=== PATIENT | male | born 1970 | race Caucasian/White ===

== ENCOUNTER 2016-12-12 11:45 | Emergency (ER) | payer SELFPAY ==
[~2016-12-12 11:45] MED LIST: HYDROmorphONE/DILAUDID 1 MG/ML SYR IVP ONE
[2016-12-12 11:50] VITALS: RESP 18
[2016-12-12] MEDS ORDERED: NS 1,000 ML IV ONE (12:14)
[2016-12-12] MEDS ORDERED: ONDANSETRON 4 MG/2 ML VIAL IVP ONE (12:14)
[2016-12-12] MEDS ORDERED: HYDROmorphONE/DILAUDID 1 MG/ML SYR IVP ONE (12:15)
[2016-12-12 12:16] LABS: COLOR PALE YELLOW; LEUKOCYTE ESTERASE,URINE NEGATIVE (NEGATIVE); NITRITE,URINE NEGATIVE (NEGATIVE)
[2016-12-12] MEDS ORDERED: TAMSULOSIN HCL 0.4 MG CAP PO ONE (12:16)
--- NOTE | 2016-12-12 12:19 | EDPHY ---
H & P Stated Complaint: r flank pain/hx kidney stones Time Seen by Provider: 12/12/16 11:51 HPI/ROS: CHIEF COMPLAINT: right flank pain HISTORY OF PRESENT ILLNESS: 46-year-old male presents emergency department complaining of sudden onset right flank pain that started at 3:00 a.m. and woke him from sleeping. Patient has a history of kidney stones and states this feels like a kidney stone. He states this morning he has an aching in his right testicle. He denies nausea, vomiting or diarrhea, no fevers. No difficulty urinating, no hematuria. Patient recently moved here from [place] , has passed multiple kidney stones, had lithotripsy several years ago. REVIEW OF SYSTEMS: A comprehensive 10 point review of systems is otherwise negative aside from elements mentioned in the history of present illness. Source: Patient Exam Limitations: No limitations - Personal History Current Tetanus/Diphtheria Vaccine: Yes - Medical/Surgical History Hx Asthma: No Hx Chronic Respiratory Disease: No Hx Diabetes: No Hx Cardiac Disease: No Hx Renal Disease: No Hx Cirrhosis: No Hx Alcoholism: No Hx HIV/AIDS: No Hx Splenectomy or Spleen Trauma: No Other PMH: kidney stones/ITP - Social History Smoking Status: Current every day smoker - Physical Exam Exam: Physical Exam Gen: Alert and Oriented, NAD HEENT: PERRL, moist mucous membranes NECK: no meningismus CV: regular rate and regular rhythm PULM: CTAB, no wheezes ABDOMEN: soft, mild right lower quadrant tenderness to palpation, BS present : No scrotal swelling, erythema or tenderness BACK: Right CVA tenderness NEURO: Neurologically grossly intact EXTREMITIES: normal appearing SKIN: no rash or break in skin on exposed skin PSYCH: answers questions appropriately. Constitutional: Initial Vital Signs Temperature (C) 36.8 C 12/12/16 11:48 Heart Rate 92 12/12/16 11:48 Respiratory Rate 18 12/12/16 11:48 Blood Pressure 122/72 H 12/12/16 11:48 O2 Sat (%) 100 12/12/16 11:48 O2 Delivery Mode Room Air Allergies/Adverse Reactions: prochlorperazine [From Compazine] Allergy (Verified 12/12/16 11:47) prochlorperazine edisylate [From Compazine] Allergy (Verified 12/12/16 11:47) prochlorperazine maleate [From Compazine] Allergy (Verified 12/12/16 11:47) promethazine HCl [From Phenergan] Allergy (Verified 12/12/16 11:47) cyllins Allergy (Uncoded 12/12/16 11:47) Home Medications: Medication Instructions Recorded Ondansetron Odt [Zofran Odt] 4 mg PO Q6-8PRN PRN #8 tab 12/12/16 Tamsulosin HCl [Flomax 0.4 MG (*)] 0.4 mg PO DAILY #7 cap 12/12/16 oxyCODONE/APAP 5/325 [Percocet 1 - 2 tab PO Q6H PRN #12 tab 12/12/16 5/325] Medical Decision Making ED Course/Re-evaluation: 46-year-old male presents with right flank pain that woke him from his sleep at 3:00 a.m.. IV established, chemistry panel obtained. Chemistry panel shows a normal creatinine and BUN, urinalysis shows 10-15 RBC's , no WBCs. Patient is afebrile, he has no evidence of infected stone. Patient is given 1 mg of Dilaudid with 4 mg of Zofran for pain control. He is also given 0.4 mg of tamsulosin. Patient required 1 other dose of IV Dilaudid. Patient is urinating without difficulty, his pain is controlled. He will be discharged home with a prescription for Percocet and tamsulosin. He is referred to a urologist as he is new to [facility]. He is given return precautions for pain that is not controlled, fevers, vomiting, any other symptoms or concerns. Patient is comfortable with this plan. Differential Diagnosis: The differential diagnosis for the patient's flank pain included but was not limited to musculoskeletal causes, kidney stone, pyelonephritis, shingles, diverticulitis, appendicitis, and aortic aneurysm. - Data Points Laboratory Results: Laboratory Results 12/12/16 12:00 12/12/16 12/12/16 12:00 11:50 Sodium 143 mEq/L (134-144) Potassium 4.3 mEq/L (3.5-5.2) Chloride 105 mEq/L (97-110) Carbon Dioxide 27 mEq/l (22-31) Anion Gap 11 mEq/L (8-16) BUN 14 mg/dL (7-23) Creatinine 0.8 mg/dL (0.7-1.3) Estimated GFR > 60 Glucose 71 mg/dL (70-100) Calcium 9.9 mg/dL (8.5-10.4) Urine Color PALE YELLOW Urine Appearance CLEAR Urine pH 7.0 (5.0-7.5) Ur Specific [place] 1.005 (1.002-1.030) Urine Protein NEGATIVE (NEGATIVE) Urine Ketones NEGATIVE (NEGATIVE) Urine Blood 3+ H (NEGATIVE) Urine Nitrate NEGATIVE (NEGATIVE) Urine Bilirubin NEGATIVE (NEGATIVE) Urine Urobilinogen NEGATIVE EU (0.2-1.0) Ur Leukocyte Esterase NEGATIVE (NEGATIVE) Urine RBC 10-15 H /hpf (0-3) Urine WBC 1-3 /hpf (0-3) Ur Epithelial Cells NONE SEEN /lpf (NONE-1+) Urine Mucus TRACE /lpf (NONE-1+) Ur Culture Indicated? NOT INDICATED (NI) Urine Glucose NEGATIVE (NEGATIVE) Medications Given: Discontinued Medications Hydromorphone HCl (Dilaudid) 1 mg IVP EDNOW ONE Stop: 12/12/16 12:16 Last Admin: 12/12/16 12:25 Dose: 1 mg Hydromorphone HCl (Dilaudid) 1 mg IVP EDNOW ONE Stop: 12/12/16 08:01 Last Admin: 12/12/16 13:14 Dose: 1 mg Sodium Chloride (Ns) 1,000 mls @ 0 mls/hr IV ONCE ONE PRN Reason: Wide Open Stop: 12/12/16 12:15 Last Admin: 12/12/16 12:28 Dose: 1,000 mls Ondansetron HCl (Zofran) 4 mg IVP EDNOW ONE Stop: 12/12/16 12:15 Last Admin: 12/12/16 12:25 Dose: 4 mg Tamsulosin HCl (Flomax) 0.4 mg PO EDNOW ONE Stop: 12/12/16 12:17 Last Admin: 12/12/16 12:25 Dose: 0.4 mg Departure - Departure Disposition: Home, Routine, Self-Care Clinical Impression: Renal colic on right side Condition: Good Instructions: Renal Colic (ED), How to Strain Your Urine (ED) Additional Instructions: Kidney stone: Take Percocet as needed for severe pain. Use Zofran as needed for nausea. Take Flomax as directed. Followup with urology as directed for symptoms not improving. Strain urine. Return to the emergency department if you have worsening pain, fevers, persistent vomiting, or other concerns. Referrals: Rajan Cortez MD [Medical Doctor] - As per Instructions (Urologist on-call) Prescriptions: Tamsulosin HCl [Flomax 0.4 MG (*)] 0.4 mg PO DAILY #7 cap oxyCODONE/APAP 5/325 [Percocet 5/325] 1 - 2 tab PO Q6H PRN #12 tab PRN Reason: Pain, Severe Ondansetron Odt [Zofran Odt] 4 mg PO Q6-8PRN PRN #8 tab PRN Reason: Nausea/Vomiting, Can'T Take Po
[2016-12-12 12:27] LABS: MUCUS TRACE /lpf (NONE-1+)
[2016-12-12 12:32] LABS: ANION GAP 11 mEq/L (8-16); CALCIUM 9.9 mg/dL (8.5-10.4); CARBON DIOXIDE 27 mEq/l (22-31); CHLORIDE 105 mEq/L (97-110); CREATININE 0.8 mg/dL (0.7-1.3); GLOMERULAR FILTRATION RATE > 60; GLUCOSE 71 mg/dL (70-100); POTASSIUM 4.3 mEq/L (3.5-5.2); SODIUM 143 mEq/L (134-144)
[2016-12-12] MEDS ORDERED: HYDROmorphONE/DILAUDID 1 MG/ML SYR ONE (13:11)
[2016-12-12 14:18] VITALS: BP 103/69; PULSE 85; TEMP 98.4; O2SAT 95
== END 2016-12-12 14:16 | disposition home or self-care (01) ==
DX: N23 Unspecified renal colic (principal); F17.200 Nicotine dependence, unspecified, uncomplicated
CPT/HCPCS: 96374; J1170; J2405

== ENCOUNTER 2016-12-17 11:27 | Emergency (ER) | payer SELFPAY ==
--- NOTE | 2016-12-17 11:32 | EDPHY ---
H & P Time Seen by Provider: 12/17/16 11:32 - Medical/Surgical History Hx Asthma: No Hx Chronic Respiratory Disease: No Hx Diabetes: No Hx Cardiac Disease: No Hx Renal Disease: No Hx Cirrhosis: No Hx Alcoholism: No Hx HIV/AIDS: No Hx Splenectomy or Spleen Trauma: No Other PMH: kidney stones/ITP - Social History Smoking Status: Current every day smoker Constitutional: Initial Vital Signs Temperature (C) 36.4 C 12/17/16 11:39 Heart Rate 76 12/17/16 11:39 Respiratory Rate 16 12/17/16 11:39 Blood Pressure 121/86 H 12/17/16 11:39 O2 Sat (%) 98 12/17/16 11:39 O2 Delivery Mode Room Air Allergies/Adverse Reactions: prochlorperazine [From Compazine] Allergy (Verified 12/17/16 11:39) prochlorperazine edisylate [From Compazine] Allergy (Verified 12/17/16 11:39) prochlorperazine maleate [From Compazine] Allergy (Verified 12/17/16 11:39) promethazine HCl [From Phenergan] Allergy (Verified 12/17/16 11:39) cyllins Allergy (Uncoded 12/12/16 11:47) Home Medications: Medication Instructions Recorded Ondansetron Odt [Zofran Odt] 4 mg PO Q6-8PRN PRN #8 tab 12/12/16 Tamsulosin HCl [Flomax 0.4 MG (*)] 0.4 mg PO DAILY #7 cap 12/12/16 oxyCODONE/APAP 5/325 [Percocet 1 - 2 tab PO Q6H PRN #12 tab 12/12/16 5/325] Medical Decision Making ED Course/Re-evaluation: CHIEF COMPLAINT: Flank pain. HISTORY OF PRESENT ILLNESS: 46-year-old male with a history of kidney stones presents with right flank pain. He was seen in the emergency department last weekend for similar complaints. He did not have a CT scan but was sent home on pain medications with urology follow up. He called but did not get an appointment until next week so he presents for pain control. The pain now radiates to his testicles. The pain is severe and stabbing in nature. This presentation is identical to his other presentations. REVIEW OF SYSTEMS: A 10 point review of systems was performed and is negative with the exception of the elements mentioned in the history of present illness. PHYSICAL EXAM: HR, BP, O2 Sat, RR. Temp noted General Appearance: Alert, well hydrated, appropriate, and non-toxic appearing. Head: Atraumatic without scalp tenderness or obvious injury Eyes: Pupils equal, round, reactive to light and accommodation, EOMI, no trauma , no injection. Ears: Clear bilaterally, no perforation, normal landmarks Nose: Atraumatic, no rhinorrhea, clear. Throat: There is no erythema or exudates, no lesions, normal tonsils, mucus membranes moist. Neck: Supple, 2+ carotid upstroke, nontender, no lymphadenopathy. Respiratory: No retractions, no distress, no wheezes, and no accessory muscle use. Lungs are clear to auscultation bilaterally. Cardiovascular: Regular rate and rhythm, no murmurs, rubs, or gallops. Bilateral carotid, radial, dorsalis pedis, and posterior tibial pulses intact. Good capillary refill all extremities. Gastrointestinal: Abdomen is soft, nontender, non-distended, no masses, no rebound, no guarding, no peritoneal signs. Musculoskeletal: Normal active ROM of all extremities, atraumatic. Neurological: Alert, appropriate, and interactive. The patient has normal DTRs and non-focal cranial nerves, motor, sensory, and cerebellar exam. Skin: No rashes, good turgor, no nodules on palpation. Past medical history:kidney stones/ITP Family history:Non-contributory. Social history:Here with . DIFFERENTIAL DIAGNOSIS: The differential diagnosis for the patient's flank pain included but was not limited to musculoskeletal causes, kidney stone, pyelonephritis, shingles, diverticulitis, appendicitis, and aortic aneurysm. MEDICAL DECISION MAKING: This 46-year-old male has a history of kidney stones and presents with right flank pain. His presentation is identical to his other kidney stones. He has had a number of CT scans in the past 3 years and does not want imaging today. I don't believe he needs imaging as he is sure he has a kidney stone and I agree. He has an appointment with Dr. Maldonado on Tuesday. His UA today shows no sign of infection. He will be prescribed oxycodone IR to carry him through to his appointment. He is comfortable with the plan. - Data Points Laboratory Results: 12/17/16 12/17/16 12/17/16 11:48 11:37 11:35 WBC Pending RBC Pending Hgb Pending Hct Pending MCV Pending MCH Pending MCHC Pending RDW Pending Plt Count Pending MPV Pending Neut % (Auto) Pending Lymph % (Auto) Pending [place] % (Auto) Pending Eos % (Auto) Pending Baso % (Auto) Pending Nucleat RBC Rel Count Pending Absolute Neuts (auto) Pending Absolute Lymphs (auto) Pending Absolute Monos (auto) Pending Absolute Eos (auto) Pending Absolute Basos (auto) Pending Absolute Nucleated RBC Pending Immature Gran % Pending Immature Gran # Pending Sodium Pending Potassium Pending Chloride Pending Carbon Dioxide Pending Anion Gap Pending BUN Pending Creatinine Pending Estimated GFR Pending Glucose Pending Calcium Pending Urine Color PALE YELLOW Urine Appearance CLEAR Urine pH 6.0 (5.0-7.5) Ur Specific [place] 1.004 (1.002-1.030) Urine Protein NEGATIVE (NEGATIVE) Urine Ketones NEGATIVE (NEGATIVE) Urine Blood 3+ H (NEGATIVE) Urine Nitrate NEGATIVE (NEGATIVE) Urine Bilirubin NEGATIVE (NEGATIVE) Urine Urobilinogen NEGATIVE EU (0.2-1.0) Ur Leukocyte Esterase NEGATIVE (NEGATIVE) Urine RBC 50-182 H /hpf (0-3) Urine WBC NONE SEEN /hpf (0-3) Ur Epithelial Cells NONE SEEN /lpf (NONE-1+) Ur Culture Indicated? NOT INDICATED (NI) Urine Glucose NEGATIVE (NEGATIVE) Departure - Departure Disposition: Home, Routine, Self-Care Clinical Impression: Kidney stone Condition: Good Instructions: Kidney Stones (ED) Additional Instructions: Take Oxycodone as prescribed for pain. Follow up with Dr. Maldonado as scheduled. Return to the emergency department for any serious worsening of condition. Referrals: NONE *PRIMARY CARE P,. [Primary Care Provider] - As per Instructions Himanshu Maldonado MD [Medical Doctor] - As per Instructions Report Scribed for: Artemio Wang Report Scribed by: Kory Fang Date of Report: 12/17/16 Time of Report: 11:53
[2016-12-17] MEDS ORDERED: NS 1,000 ML IV ONE (11:37)
[2016-12-17] MEDS ORDERED: KETOROLAC 30 MG/1 ML SDV IVP ONE (11:37)
[2016-12-17] MEDS ORDERED: HYDROmorphONE/DILAUDID 1 MG/ML SYR ONE (11:47)
[2016-12-17 11:48] LABS: COLOR PALE YELLOW; LEUKOCYTE ESTERASE,URINE NEGATIVE (NEGATIVE); NITRITE,URINE NEGATIVE (NEGATIVE)
[2016-12-17 11:51] LABS: RBC,URINE 50-182 /hpf (0-3)
[2016-12-17 11:52] LABS: WBC,URINE NONE SEEN /hpf (0-3)
[2016-12-17] MEDS ORDERED: HYDROmorphONE/DILAUDID 1 MG/ML SYR IVP ONE ×2 (11:55→12:29)
[2016-12-17 11:57] LABS: % IMMATURE GRANULYOCYTES 0.2 % (0.0-1.1); ABSOLUTE IMMATURE GRANULOCYTES 0.01 10^3/uL (0.00-0.10); ADD DIFF? NO; ADD MORPH? NO; ADD SCAN? NO; ATYPICAL LYMPHOCYTE FLAG 10 (0-99); FRAGMENT RBC FLAG 0 (0-99); HEMATOCRIT 44.6 % (40.0-51.0); HEMOGLOBIN 15.5 g/dL (13.7-17.5); LEFT SHIFT FLG 0 (0-99); LIPEMIA HEMOLYSIS FLAG 90 (0-99); MEAN CELL HEMOGLOBIN 30.3 pg (27.9-34.1); MEAN CELL HEMOGLOBIN CONCENTR. 34.8 g/dL (32.4-36.7); MEAN CELL VOLUME 87.3 fL (81.5-99.8); MEAN PLATELET VOLUME 9.2 fL (8.7-11.7); PLATELET CLUMPS FLAG 0 (0-99); PLATELET COUNT 295 10^3/uL (150-400); RED BLOOD CELL COUNT 5.11 10^6/uL (4.40-6.38); RED CELL DISTRIBUTION WIDTH 12.3 % (11.5-15.2)
[2016-12-17 12:29] LABS: ANION GAP 11 mEq/L (8-16); CALCIUM 9.8 mg/dL (8.5-10.4); CARBON DIOXIDE 24 mEq/l (22-31); CHLORIDE 109 mEq/L (97-110); CREATININE 0.8 mg/dL (0.7-1.3); GLOMERULAR FILTRATION RATE > 60; GLUCOSE 82 mg/dL (70-100); POTASSIUM 4.3 mEq/L (3.5-5.2); SODIUM 144 mEq/L (134-144)
[2016-12-17 12:32] VITALS: PULSE 71; RESP 18
[2016-12-17 12:44] VITALS: BP 122/81; TEMP 98.1; O2SAT 96
== END 2016-12-17 12:43 | disposition home or self-care (01) ==
DX: N20.0 Calculus of kidney (principal); F17.200 Nicotine dependence, unspecified, uncomplicated
CPT/HCPCS: 96374; J1170; J1885

== ENCOUNTER 2017-02-02 18:10 | Emergency (ER) | payer SELFPAY ==
[2017-02-02 18:45] LABS: COLOR PALE YELLOW; LEUKOCYTE ESTERASE,URINE NEGATIVE (NEGATIVE); NITRITE,URINE NEGATIVE (NEGATIVE)
[2017-02-02 18:46] LABS: BACTERIA TRACE /hpf (NONE SEEN); MUCUS TRACE /lpf (NONE-1+); RBC,URINE 50-182 /hpf (0-3)
[2017-02-02] MEDS ORDERED: HYDROmorphONE/DILAUDID 1 MG/ML SYR IVP ONE ×3 (18:57→20:14)
[2017-02-02] MEDS ORDERED: NS 1,000 ML IV ONE (19:15)
--- NOTE | 2017-02-02 20:05 | EDPHY ---
H & P Time Seen by Provider: 02/02/17 20:01 HPI/ROS: CHIEF COMPLAINT: Left flank pain HISTORY OF PRESENT ILLNESS: 46-year-old male with a history of multiple prior kidney stones presents left flank pain. He was diagnosed with a left ureteral stone, 5 mm in diameter, 10 days ago in [facility]. He was discharged home on Flomax and Percocet. The pain resolved for several days, but has now returned. The pain is moderate and is located in the left flank and radiates to his groin. He has an appointment to see Dr. Alexander next Tuesday. REVIEW OF SYSTEMS: Constitutional: No fever, no chills Eyes: No visual changes ENT: No sore throat Respiratory: No cough, no shortness of breath Cardiac: No chest pain Gastrointestinal: No nausea, no vomiting Genitourinary: No hematuria, no dysuria Musculoskeletal: No leg pain or swelling Skin: No rash Neurological: No headache, no numbness, no weakness Psychiatric: No depression Past Medical/Surgical History: Kidney stones ITP Social History: No PCP No recent alcohol Smoking Status: Current every day smoker Physical Exam: General Appearance: Alert, appears comfortable Eyes: Pupils equal and round, no conjunctival pallor or injection ENT, Mouth: Mucous membranes moist Neck: Normal inspection Respiratory: Lungs are clear to auscultation Cardiovascular: Regular rate and rhythm Gastrointestinal: Abdomen is soft and nontender Neurological: A&O, nonfocal, normal gait Skin: Warm and dry, no rash Extremities: Nontender, no pedal edema Psychiatric: Mood and affect normal Constitutional: Initial Vital Signs Temperature (C) 36.7 C 02/02/17 18:30 Heart Rate 102 H 02/02/17 18:30 Respiratory Rate 20 02/02/17 18:30 Blood Pressure 112/73 02/02/17 18:30 O2 Sat (%) 98 02/02/17 18:30 O2 Delivery Mode Room Air Allergies/Adverse Reactions: prochlorperazine [From Compazine] Allergy (Verified 02/02/17 18:29) prochlorperazine edisylate [From Compazine] Allergy (Verified 02/02/17 18:29) prochlorperazine maleate [From Compazine] Allergy (Verified 02/02/17 18:29) promethazine HCl [From Phenergan] Allergy (Verified 02/02/17 18:29) cyllins Allergy (Uncoded 12/12/16 11:47) Home Medications: Medication Instructions Recorded Tamsulosin HCl [Flomax 0.4 MG (RX)] 0.4 mg PO DAILY #4 cap 02/02/17 oxyCODONE/APAP 5/325 [Percocet 1 tab PO Q4 PRN #15 tab 02/02/17 5/325 (*)] Medical Decision Making - Diagnostics Imaging: KUB independently reviewed by me reveals no definite ureteral calculus. ED Course/Re-evaluation: Dilaudid and Zofran IV given on patient arrival for pain control. He requests that we do not do a repeat CT scan as he has had [address] scans of the abdomen and pelvis. He understands that he needs to obtain the prior CT scan performed 10 days ago before he sees the urologist. Feels better after IV pain medication. I will send him home with a short prescription of Percocet as well as Flomax. Differential Diagnosis: Differential diagnosis includes though it is not limited to appendicitis, cholecystitis, diverticulitis, pyelonephritis, bowel perforation, small bowel obstruction. - Data Points Medications Given: Discontinued Medications Hydromorphone HCl (Dilaudid) 1 mg IVP EDNOW ONE Stop: 02/02/17 18:58 Last Admin: 02/02/17 19:00 Dose: 1 mg Hydromorphone HCl (Dilaudid) 2,010 mg IVP EDNOW ONE Stop: 02/02/17 20:15 Last Admin: 02/02/17 20:40 Dose: Not Given Hydromorphone HCl (Dilaudid) 1 mg IVP EDNOW ONE Stop: 02/02/17 20:11 Last Admin: 02/02/17 20:10 Dose: 1 mg Sodium Chloride (Ns) 1,000 mls @ 0 mls/hr IV ONCE ONE PRN Reason: Wide Open Stop: 02/02/17 19:16 Last Admin: 02/02/17 19:15 Dose: 1,000 mls Departure - Departure Disposition: Home, Routine, Self-Care Clinical Impression: Renal colic on left side Condition: Good Instructions: Oxycodone/Acetaminophen (By mouth), Renal Colic (ED) Additional Instructions: Take Percocet 1 tablet every 6 hours as needed for pain. Referrals: Rajan Cortez MD [Medical Doctor] - As per Instructions Prescriptions: oxyCODONE/APAP 5/325 [Percocet 5/325 (*)] 1 tab PO Q4 PRN #15 tab PRN Reason: pain Tamsulosin HCl [Flomax 0.4 MG (RX)] 0.4 mg PO DAILY #4 cap
[2017-02-02] MEDS ORDERED: HYDROmorphONE/DILAUDID 1 MG/ML SYR ONE (20:10)
[2017-02-02 20:44] VITALS: O2SAT 99
[2017-02-02] MEDS ORDERED: OXYCODONE/APAP 5/325MG PREPACK#4 BTL TAKEHOME ONE ×2 (21:09→21:10)
[2017-02-02 21:25] VITALS: BP 112/76; PULSE 87; RESP 14; TEMP 99
== END 2017-02-02 21:25 | disposition home or self-care (01) ==
DX: N23 Unspecified renal colic (principal); F17.200 Nicotine dependence, unspecified, uncomplicated
CPT/HCPCS: 96374; J1170

== ENCOUNTER 2017-03-27 10:32 | Emergency (ER) | payer SELFPAY ==
[2017-03-27] MEDS ORDERED: ONDANSETRON 4 MG/2 ML VIAL ONE (10:54)
[2017-03-27] MEDS ORDERED: HYDROmorphONE/DILAUDID 1 MG/ML SYR IVP ONE ×2 (10:55→12:12)
[2017-03-27] MEDS ORDERED: HYDROmorphONE/DILAUDID 1 MG/ML SYR ONE (10:55)
--- NOTE | 2017-03-27 10:59 | EDPHY ---
H & P Stated Complaint: kidney stone Time Seen by Provider: 03/27/17 10:57 HPI/ROS: CHIEF COMPLAINT: Left-sided abdominal pain. HISTORY OF PRESENT ILLNESS: The patient is a 46-year-old male who states he has a history of kidney stones and who was diagnosed with a left uretal kidney in the mid ureter last week who presenting with worsening abdominal pain that began this morning. He has had intermittent abdominal pain since being diagnosed but this morning the pain became much worse and constant. It radiates to his testicles. He admits worsening hematuria. He is unable to get comfortable with the pain. No fever, chills, chest pain, shortness of breath, palpitations, vomiting, diarrhea, headache, lightheadedness. Patient relates a history that he was seen in [place] and there was diagnosed with a ureteral stone. Describes it is 5.9 mm. Patient reports he has a history of ITP and was given a Medrol Dosepak in [place] in preparation for potential stenting in order to increase his platelets. REVIEW OF SYSTEMS: Aside from elements discussed in the HPI, a comprehensive 10-point review of systems was reviewed and is negative. PAST MEDICAL HISTORY: Kidney stone, ITP. SOCIAL HISTORY: . VITAL SIGNS: Reviewed by me GENERAL: Well-developed, well-nourished, appears in pain. HEENT: Atraumatic. Eyes: No icterus, no injection. Mouth: moist mucous membranes. No erythema or lesions. Neck: supple with no adenopathy. LUNGS: Clear to auscultation bilaterally, no wheezes, rhonchi or rales. CARDIAC: Regular rate and rhythm, no rubs, murmurs or gallops. ABDOMEN: Soft, nondistended, bowel sounds normal. LLQ tenderness. BACK: No CVA tenderness. EXTREMITIES: No trauma. No edema. Range of motion is normal throughout. NEURO: Alert and oriented, grossly nonfocal. SKIN: Warm and dry, no rash. PSYCHIATRIC: Normal mentation, no agitation. Portions of this note were transcribed by a medical payment poster. I personally performed a history, physical exam, medical decision making, and confirmed accuracy of information the transcribed note. Source: Patient Exam Limitations: No limitations - Medical/Surgical History Hx Asthma: No Hx Chronic Respiratory Disease: No Hx Diabetes: No Hx Cardiac Disease: No Hx Renal Disease: No Hx Cirrhosis: No Hx Alcoholism: No Hx HIV/AIDS: No Hx Splenectomy or Spleen Trauma: No Other PMH: kidney stones/ITP - Social History Smoking Status: Current every day smoker Constitutional: Initial Vital Signs Temperature (C) 37.2 C 03/27/17 10:35 Heart Rate 99 03/27/17 10:35 Respiratory Rate 18 03/27/17 10:35 Blood Pressure 120/78 03/27/17 10:35 O2 Sat (%) 99 03/27/17 10:35 O2 Delivery Mode Room Air Allergies/Adverse Reactions: prochlorperazine [From Compazine] Allergy (Verified 02/02/17 18:29) prochlorperazine edisylate [From Compazine] Allergy (Verified 02/02/17 18:29) prochlorperazine maleate [From Compazine] Allergy (Verified 02/02/17 18:29) promethazine HCl [From Phenergan] Allergy (Verified 02/02/17 18:29) cyllins Allergy (Uncoded 12/12/16 11:47) Home Medications: Medication Instructions Recorded Tamsulosin HCl [Flomax 0.4 MG (RX)] 0.4 mg PO DAILY #4 cap 02/02/17 oxyCODONE/APAP 5/325 [Percocet 1 tab PO Q4 PRN #15 tab 02/02/17 5/325 (*)] Ondansetron Odt [Zofran Odt 4 mg 4 mg PO Q6 PRN #8 tab 03/27/17 (RX)] Tamsulosin HCl [Flomax] 0.4 mg PO DAILY #7 cap 03/27/17 oxyCODONE/APAP 5/325 [Percocet 1 - 2 tab PO QID PRN #10 tab 03/27/17 5/325 (*)] Medical Decision Making - Diagnostics Imaging: I viewed and interpreted images myself ED Course/Re-evaluation: This patient reports having an abdominal CT last week that showed a left-sided in the mid ureter. Since then his initially intermittent abdominal pain and light hematuria have both worsened. He is tender in the LLQ on exam. An IV was established and labs ordered. 1L IV saline, 1mg IV Dilaudid, and 4mg IV Zofran administered. Urinalysis is positive for 3+ blood. Patient's platelet count is normal. 1220: Reassessed patient. Discussed workup so far. I recommended abdomen/pelvis CT but he declined. We will take a KUB instead. Study: KUB X-ray Indication: Flank pain. Results: I viewed the images myself on the PACS system. My interpretation of the images is: no kidney stone seen. The radiologist interpretation is pending at the time of this dictation. 1329: Reassessed patient. Discussed results of workup with him. He does have an appointment with Dr. Maldonado on Tuesday. I recommended CT again but he declined. [place] prescription drug monitoring program was attempted to be accessed. Unfortunately, I am locked out of my account secondary to an old email address and the help desk is not open at this time. * In review of the patient's old records he was seen in January with a very similar history of being in [facility], being diagnosed with a kidney stone, presenting for worsening pain, and again declining imaging studies. I discussed this with the patient. He and his tell me that they have family in [place] and travel frequently between the 2 states. He reports having history of [address] scans and does not wish to have another CT scan performed. I am somewhat suspicious of the patient's history and have asked to speak to Dr. Maldonado. Dr. Maldonado's return call was somewhat delayed and the patient was discharged from the emergency department as he was anxious to leave. Dr. Maldonado reports that he has never seen this patient and that he does not have an appointment on Tuesday. I will ask pillowcase folder for assistance with this patient, insuring that he receives the follow-up that he needs, as well as further documentation of past history if available. Differential Diagnosis: The differential diagnosis for the patient's abdominal pain was considered including but not limited to kidney stone, ureteral spasm, urinary tract infection, diverticulitis, drug seeking behavior. - Data Points Laboratory Results: Laboratory Results 03/27/17 11:00 03/27/17 11:00 Medications Given: Discontinued Medications Hydromorphone HCl (Dilaudid) 1 mg IVP EDNOW ONE Stop: 03/27/17 10:56 Last Admin: 03/27/17 11:00 Dose: 1 mg Hydromorphone HCl (Dilaudid) 0.5 mg IVP EDNOW ONE Stop: 03/27/17 12:13 Last Admin: 03/27/17 12:15 Dose: 0.5 mg Sodium Chloride (Ns) 1,000 mls @ 0 mls/hr IV ONCE ONE PRN Reason: Wide Open Stop: 03/27/17 11:03 Last Admin: 03/27/17 11:00 Dose: 1,000 mls Ketorolac Tromethamine (Toradol) 15 mg IVP EDNOW ONE Stop: 03/27/17 11:49 Last Admin: 03/27/17 12:04 Dose: Not Given Ondansetron HCl (Zofran) 4 mg IVP EDNOW ONE Stop: 03/27/17 11:03 Last Admin: 03/27/17 11:00 Dose: 4 mg Departure - Departure Disposition: Home, Routine, Self-Care Clinical Impression: Kidney stone Condition: Good Instructions: Kidney Stones (ED) Additional Instructions: Follow up with Dr. Maldonado, urology, on Tuesday as scheduled. Return for any serious worsening of condition. Referrals: Himanshu Maldonado MD [Medical Doctor] - As per Instructions Prescriptions: Ondansetron Odt [Zofran Odt 4 mg (RX)] 4 mg PO Q6 PRN #8 tab PRN Reason: Nausea oxyCODONE/APAP 5/325 [Percocet 5/325 (*)] 1 - 2 tab PO QID PRN #10 tab PRN Reason: Pain Tamsulosin HCl [Flomax] 0.4 mg PO DAILY #7 cap Report Scribed for: Marissa Bone Report Scribed by: Kory Fang Date of Report: 03/27/17 Time of Report: 11:04
[2017-03-27] MEDS ORDERED: NS 1,000 ML IV ONE (11:02)
[2017-03-27] MEDS ORDERED: ONDANSETRON 4 MG/2 ML VIAL IVP ONE (11:02)
[2017-03-27 11:12] LABS: % IMMATURE GRANULYOCYTES 0.2 % (0.0-1.1); ABSOLUTE IMMATURE GRANULOCYTES 0.01 10^3/uL (0.00-0.10); ADD DIFF? NO; ADD MORPH? NO; ADD SCAN? NO; ATYPICAL LYMPHOCYTE FLAG 20 (0-99); FRAGMENT RBC FLAG 0 (0-99); HEMOGLOBIN 15.5 g/dL (13.7-17.5); LEFT SHIFT FLG 10 (0-99); LIPEMIA HEMOLYSIS FLAG 90 (0-99); MEAN CELL HEMOGLOBIN 29.5 pg (27.9-34.1); MEAN CELL HEMOGLOBIN CONCENTR. 34.4 g/dL (32.4-36.7); MEAN CELL VOLUME 85.7 fL (81.5-99.8); MEAN PLATELET VOLUME 9.3 fL (8.7-11.7); PLATELET CLUMPS FLAG 0 (0-99); PLATELET COUNT 288 10^3/uL (150-400); RED BLOOD CELL COUNT 5.25 10^6/uL (4.40-6.38); RED CELL DISTRIBUTION WIDTH 12.8 % (11.5-15.2)
[2017-03-27 11:28] LABS: ANION GAP 12 mEq/L (8-16); CALCIUM 10.1 mg/dL (8.5-10.4); CARBON DIOXIDE 25 mEq/l (22-31); CHLORIDE 104 mEq/L (97-110); CREATININE 0.8 mg/dL (0.7-1.3); GLOMERULAR FILTRATION RATE > 60; GLUCOSE 95 mg/dL (70-100); POTASSIUM 4.1 mEq/L (3.5-5.2); SODIUM 141 mEq/L (134-144)
[2017-03-27 11:41] LABS: COLOR YELLOW; LEUKOCYTE ESTERASE,URINE NEGATIVE (NEGATIVE); NITRITE,URINE NEGATIVE (NEGATIVE)
[2017-03-27] MEDS ORDERED: KETOROLAC 15 MG/1 ML SDV IVP ONE (11:48)
[2017-03-27 12:02] LABS: MUCUS TRACE /lpf (NONE-1+); RBC,URINE 50-182 /hpf (0-3)
[2017-03-27 13:57] VITALS: BP 124/84; PULSE 88; RESP 16; TEMP 98.1; O2SAT 96
== END 2017-03-27 13:57 | disposition home or self-care (01) ==
DX: N20.0 Calculus of kidney (principal); F17.200 Nicotine dependence, unspecified, uncomplicated
CPT/HCPCS: 96374; J1170; J1885; J2405

== ENCOUNTER 2017-10-15 07:46 | Emergency (ER) | payer SELFPAY ==
[2017-10-15 07:52] VITALS: TEMP 97.5
[2017-10-15] MEDS ORDERED: TAMSULOSIN HCL 0.4 MG CAP PO ONE (08:05)
[2017-10-15] MEDS ORDERED: ONDANSETRON 4 MG/2 ML VIAL IVP ONE (08:05)
[2017-10-15] MEDS ORDERED: HYDROmorphONE/DILAUDID 1 MG/ML INJ IVP ONE ×2 (08:05→09:38)
[2017-10-15] MEDS ORDERED: NS 1,000 ML IV ONE (08:05)
--- NOTE | 2017-10-15 08:10 | EDPHY ---
H & P Time Seen by Provider: 10/15/17 07:59 HPI/ROS: CHIEF COMPLAINT: Abdominal pain, flank pain HISTORY OF PRESENT ILLNESS: 47-year-old male presents to the emergency department by private vehicle complaining of right flank and abdominal pain. The pain woke him up out of his sleep at 4:00 a.m. this morning. Patient has had numerous kidney stones and states this feels very similar. He has passed these on his own as well as required lithotripsy in the past. No fevers or chills. He is nauseous and has been vomiting. He does have diarrhea. He has had hematuria. He denies dysuria, urgency or frequency with urination. REVIEW OF SYSTEMS: Constitutional: No fever, no chills. Eyes: No double or blurry vision. ENT: No sore throat. Respiratory: No cough, no shortness of breath. Cardiac: No chest pain. Gastrointestinal: As above Genitourinary: No dysuria. Musculoskeletal: Flank pain as above. No neck pain. Skin: No rashes. Neurological: No headache. Past Medical/Surgical History: Multiple kidney stones, lithotripsy Social History: Smoking Status: Current every day smoker Physical Exam: General Appearance: Alert, obvious distress. Afebrile. Eyes: Pupils equal and round. Extraocular motions are all intact. ENT: Mouth: Mucous membranes moist. Respiratory: No wheezing, rhonchi, or rales, lungs are clear to auscultation. Cardiovascular: Regular rate and rhythm. Gastrointestinal: Abdomen is soft and nontender, no masses, no rebound or guarding, bowel sounds normal. No CVA tenderness bilaterally. Neurological: Alert and oriented x 3, cranial nerves II through XII grossly intact Skin: Warm and dry, no rashes. Musculoskeletal: Nontender to palpate along the cervical, thoracic or lumbar spine. Neck is supple. Extremities: Full range of motion and no peripheral edema. Psychiatric: Patient is oriented X 3, there is no agitation. Constitutional: Initial Vital Signs Temperature (C) 36.4 C 10/15/17 07:49 Heart Rate 95 10/15/17 07:49 Respiratory Rate 20 10/15/17 07:49 Blood Pressure 130/70 H 10/15/17 07:49 O2 Sat (%) 99 10/15/17 07:49 O2 Delivery Mode Room Air Allergies/Adverse Reactions: NSAIDS (Non-Steroidal Anti-Inflamma Allergy (Verified 10/15/17 07:48) prochlorperazine [From Compazine] Allergy (Verified 10/15/17 07:48) prochlorperazine edisylate [From Compazine] Allergy (Verified 10/15/17 07:48) prochlorperazine maleate [From Compazine] Allergy (Verified 10/15/17 07:48) promethazine HCl [From Phenergan] Allergy (Verified 10/15/17 07:48) blood thinners Allergy (Uncoded 10/15/17 07:48) cyllins Allergy (Uncoded 10/15/17 07:48) Home Medications: Medication Instructions Recorded Tamsulosin HCl [Flomax] 0.4 mg PO DAILY #10 cap 10/15/17 oxyCODONE/APAP 5/325 [Percocet 1 - 2 tab PO Q4-6PRN PRN #11 tab 10/15/17 5/325] Medical Decision Making - Diagnostics Imaging Results: Imaging Impressions Abdomen X-Ray 10/15/17 08:05 Impression: Bilateral nephrolithiasis versus overlying chondral calcification is unchanged. Imaging: I viewed and interpreted images myself ED Course/Re-evaluation: 47-year-old male presents to the emergency department with right flank pain and abdominal pain. The patient has a history of multiple kidney stones. He states that this feels similar. He did provide a urine specimen which had gross hematuria noted. The patient has had "too many" CT scans. They recommended that he not have any more CT scans. He states they usually do a KUB or ultrasound. The patient also developed ITP in 2011 and is unable to have any anti- inflammatories including Toradol. An IV was established laboratory studies are pending. Patient will be given 0.5 of Dilaudid, 4 mg of Zofran, and IV normal saline. Patient was given a total of 1 mg of Dilaudid IV. He had no vomiting in the emergency department. His pain was under control. KUB x-ray reveals numerous stones in the kidneys. The patient is comfortable. I do not think additional imaging studies are necessary. I recommended close follow up with urologist this week to recheck. He should return if he develops fever, difficulty urinating, increasing pain or any other concerns. Differential Diagnosis: Including but not limited to kidney stones, urinary tract infection, pyelonephritis, acute appendicitis - Data Points Laboratory Results: Laboratory Results 10/15/17 08:23 10/15/17 08:23 10/15/17 10/15/17 10/15/17 08:23 08:23 08:23 WBC 4.90 10^3/uL 10^3/uL (3.80-9.50) RBC 5.35 10^6/uL 10^6/uL (4.40-6.38) Hgb 16.1 g/dL g/dL (13.7-17.5) Hct 46.3 % % (40.0-51.0) MCV 86.5 fL fL (81.5-99.8) MCH 30.1 pg pg (27.9-34.1) MCHC 34.8 g/dL g/dL (32.4-36.7) RDW 12.1 % % (11.5-15.2) Plt Count 304 10^3/uL 10^3/uL (150-400) MPV 9.0 fL fL (8.7-11.7) Neut % (Auto) 59.7 % % (39.3-74.2) Lymph % (Auto) 31.4 % % (15.0-45.0) [place] % (Auto) 7.1 % % (4.5-13.0) Eos % (Auto) 0.6 % % (0.6-7.6) Baso % (Auto) 0.6 % % (0.3-1.7) Nucleat RBC Rel Count 0.0 % % (0.0-0.2) Absolute Neuts (auto) 2.92 10^3/uL 10^3/uL (1.70-6.50) Absolute Lymphs (auto) 1.54 10^3/uL 10^3/uL (1.00-3.00) Absolute Monos (auto) 0.35 10^3/uL 10^3/uL (0.30-0.80) Absolute Eos (auto) 0.03 10^3/uL 10^3/uL (0.03-0.40) Absolute Basos (auto) 0.03 10^3/uL 10^3/uL (0.02-0.10) Absolute Nucleated RBC 0.00 10^3/uL 10^3/uL (0-0.01) Immature Gran % 0.6 % % (0.0-1.1) Immature Gran # 0.03 10^3/uL 10^3/uL (0.00-0.10) Sodium 143 mEq/L mEq/L (134-144) Potassium 4.1 mEq/L mEq/L (3.5-5.2) Chloride 106 mEq/L mEq/L (97-110) Carbon Dioxide 25 mEq/l mEq/l (22-31) Anion Gap 12 mEq/L mEq/L (8-16) BUN 18 mg/dL mg/dL (7-23) Creatinine 0.8 mg/dL mg/dL (0.7-1.3) Estimated GFR > 60 Glucose 104 mg/dL H mg/dL (70-100) Calcium 9.8 mg/dL mg/dL (8.5-10.4) Urine Color IGLESIA Urine Appearance CLEAR Urine pH 6.0 (5.0-7.5) Ur Specific [place] 1.003 (1.002-1.030) Urine Protein NEGATIVE (NEGATIVE) Urine Ketones NEGATIVE (NEGATIVE) Urine Blood 3+ H (NEGATIVE) Urine Nitrate NEGATIVE (NEGATIVE) Urine Bilirubin NEGATIVE (NEGATIVE) Urine Urobilinogen NEGATIVE EU EU (0.2-1.0) Ur Leukocyte Esterase NEGATIVE (NEGATIVE) Urine RBC 50-182 /hpf H /hpf (0-3) Urine WBC 1-3 /hpf /hpf (0-3) Ur Epithelial Cells NONE SEEN /lpf /lpf (NONE-1+) Urine Bacteria 1+ /hpf H /hpf (NONE SEEN) Urine Glucose NEGATIVE (NEGATIVE) Medications Given: Discontinued Medications Hydromorphone HCl (Dilaudid) 0.5 mg IVP EDNOW ONE Stop: 10/15/17 08:06 Last Admin: 10/15/17 08:35 Dose: 0.5 mg Hydromorphone HCl (Dilaudid) 0.5 mg IVP EDNOW ONE Stop: 10/15/17 09:39 Last Admin: 10/15/17 09:44 Dose: 0.5 mg Sodium Chloride (Ns) 1,000 mls @ 0 mls/hr IV ONCE ONE PRN Reason: Wide Open Stop: 10/15/17 08:06 Last Admin: 10/15/17 08:33 Dose: 1,000 mls Ondansetron HCl (Zofran) 4 mg IVP EDNOW ONE Stop: 10/15/17 08:06 Last Admin: 10/15/17 08:34 Dose: 4 mg Tamsulosin HCl (Flomax) 0.4 mg PO EDNOW ONE Stop: 10/15/17 08:06 Last Admin: 10/15/17 08:35 Dose: 0.4 mg Departure - Departure Disposition: Home, Routine, Self-Care Clinical Impression: Renal colic on right side, Kidney stone on right side Condition: Good Instructions: Renal Colic (ED), Kidney Stones (ED) Additional Instructions: Strain your urine. Flomax daily until stone passes. Percocet for severe pain as directed. Follow up with your urologist next week to recheck. Return to the emergency department if he developed fever, vomiting, worsening pain or if you feel worse in any way. Referrals: Himanshu Maldonado MD [Medical Doctor] - 2-3 days, call for appt. (Urologist on- call) Prescriptions: oxyCODONE/APAP 5/325 [Percocet 5/325] 1 - 2 tab PO Q4-6PRN PRN #11 tab PRN Reason: For Moderate To Severe Pain Tamsulosin HCl [Flomax] 0.4 mg PO DAILY #10 cap
[2017-10-15 08:32] LABS: % IMMATURE GRANULYOCYTES 0.6 % (0.0-1.1); ABSOLUTE IMMATURE GRANULOCYTES 0.03 10^3/uL (0.00-0.10); ADD DIFF? NO; ADD MORPH? NO; ADD SCAN? NO; ATYPICAL LYMPHOCYTE FLAG 0 (0-99); FRAGMENT RBC FLAG 0 (0-99); HEMATOCRIT 46.3 % (40.0-51.0); HEMOGLOBIN 16.1 g/dL (13.7-17.5); LEFT SHIFT FLG 0 (0-99); LIPEMIA HEMOLYSIS FLAG 90 (0-99); MEAN CELL HEMOGLOBIN 30.1 pg (27.9-34.1); MEAN CELL HEMOGLOBIN CONCENTR. 34.8 g/dL (32.4-36.7); MEAN CELL VOLUME 86.5 fL (81.5-99.8); PLATELET CLUMPS FLAG 10 (0-99); PLATELET COUNT 304 10^3/uL (150-400); RED BLOOD CELL COUNT 5.35 10^6/uL (4.40-6.38); RED CELL DISTRIBUTION WIDTH 12.1 % (11.5-15.2)
[2017-10-15 08:33] LABS: COLOR AMBER; LEUKOCYTE ESTERASE,URINE NEGATIVE (NEGATIVE); NITRITE,URINE NEGATIVE (NEGATIVE)
[2017-10-15 08:42] LABS: BACTERIA 1+ /hpf (NONE SEEN); RBC,URINE 50-182 /hpf (0-3)
[2017-10-15 08:45] LABS: ANION GAP 12 mEq/L (8-16); CALCIUM 9.8 mg/dL (8.5-10.4); CARBON DIOXIDE 25 mEq/l (22-31); CHLORIDE 106 mEq/L (97-110); CREATININE 0.8 mg/dL (0.7-1.3); GLOMERULAR FILTRATION RATE > 60; GLUCOSE 104 mg/dL (70-100); POTASSIUM 4.1 mEq/L (3.5-5.2); SODIUM 143 mEq/L (134-144)
[2017-10-15 09:52] VITALS: PULSE 72; O2SAT 97
[2017-10-15 10:46] VITALS: BP 105/6; RESP 16
== END 2017-10-15 10:44 | disposition home or self-care (01) ==
DX: N23 Unspecified renal colic (principal); N20.0 Calculus of kidney; F17.200 Nicotine dependence, unspecified, uncomplicated; R11.2 Nausea with vomiting, unspecified
CPT/HCPCS: 96374; J1170; J2405